=== PATIENT | female | born 1935 | race Caucasian/White ===

== ENCOUNTER 2016-09-06 09:20 | Day surgery (SDC) | payer OTHER, MEDICARE ==
[2016-09-05 13:39] VITALS: BMI 28.6
[2016-09-06 09:50] LABS: INR 2.92 (0.82-1.09); PROTHROMBIN TIME (PATIENT) 32.8 SEC (9.98-11.88)
[2016-09-06 09:53] LABS: ACTIVATED PTT 47.1 SECONDS (26.9-34.4)
[2016-09-06 11:09] VITALS: TEMP 97.8
--- NOTE | 2016-09-06 11:35 | EKG ---
Test Reason : Blood Pressure : / mmHG Vent. Rate : 061 BPM Atrial Rate : 061 BPM P-R Int : 166 ms QRS Dur : 080 ms QT Int : 462 ms P-R-T Axes : -03 020 027 degrees QTc Int : 465 ms NORMAL SINUS RHYTHM NORMAL ECG WHEN COMPARED WITH ECG OF 24-DEC-2013 09:15, NO SIGNIFICANT CHANGE WAS FOUND Confirmed by CRISTÓBAL ZIEGLER MD ([id number]) on 09/06/2016 11:35:26 AM Referred By: Cristóbal Ziegler Confirmed By:CRISTÓBAL ZIEGLER MD
[2016-09-06 13:57] VITALS: BP 116/55; PULSE 61
== END 2016-09-06 13:57 | disposition home or self-care (01) ==
LOC: JASU-ENDO 09:20
PROVIDERS: ATTEND Internal Medicine Cardiovascular Disease
PROC: 5A2204Z Restoration of Cardiac Rhythm, Single (ICD-10-PCS; principal; 2016-09-06 10:30)
DX: I48.91 Unspecified atrial fibrillation (principal)
CPT/HCPCS: 36415; 85610; 85730; 92960; 93005; 93010